=== PATIENT | female | born 1990 | race Caucasian/White ===

== ENCOUNTER 2023-09-11 14:18 | Outpatient (CLI) | payer BC, SELFPAY ==
[2023-09-11 22:43] LABS: Chlamydia DNA Amplified* NOT DETECTED (No Detected); GC DNA Amplified* NOT DETECTED (No Detected)
== END 2023-09-11 14:19 | disposition home or self-care (01) ==
PROVIDERS: Visit Provider Obstetrics & Gynecology
DX: Z11.3 Encounter for screening for infections with a predominantly sexual mode of transmission (principal)
CPT/HCPCS: 86592; 86703; 86803; 87341; 87491; 87591

== ENCOUNTER 2023-11-28 15:59 | Outpatient (CLI) | payer BC, SELFPAY | END 2023-11-28 16:00 | disposition home or self-care (01) | PROVIDERS: Visit Provider Obstetrics & Gynecology | DX: R39.9 Unspecified symptoms and signs involving the genitourinary system (principal) | CPT/HCPCS: 87086 ==

== ENCOUNTER 2024-10-06 11:47 | Outpatient (CLI) | payer BC, SELFPAY ==
[2024-10-06 23:47] LABS: Chlamydia DNA Amplified* NOT DETECTED (No Detected); GC DNA Amplified* NOT DETECTED (No Detected)
[2024-10-15 01:39] LABS: HPV Source Cervix; HPV, High Risk by TMA Not Detected
== END 2024-10-06 11:48 | disposition home or self-care (01) ==
PROVIDERS: Visit Provider Obstetrics & Gynecology
DX: N92.6 Irregular menstruation, unspecified (principal); N87.0 Mild cervical dysplasia; Z11.3 Encounter for screening for infections with a predominantly sexual mode of transmission
CPT/HCPCS: 86592; 86703; 86706; 86803; 87340; 87491; 87591; 87624; 87625; 88141; 88142

== ENCOUNTER 2024-11-01 16:34 | Outpatient (CLI) | payer BC, SELFPAY ==
--- NOTE | 2024-11-01 16:45 | CRLHL7_ITS ---
For Patients: As a result of the Century Cures Act, medical imaging exams and procedure reports are released immediately into your electronic medical record. You may view this report before your referring provider. If you have questions, please contact your health care provider. INDICATION: Irregular and extended vaginal bleeding COMPARISON: none TECHNIQUE: 2D hayes scale and color Doppler images were acquired of the pelvis using a transabdominal and transvaginal approach. FINDINGS: Sonographic images demonstrate a normal size and smooth outer contour of the uterus. Uterus measures 9.1 cm in length by 3.1 cm in AP diameter by 4.1 cm in transverse dimension. The myometrium has a normal uniform echotexture. The endometrium is not thickened. Normal position of an IUD within the endometrial canal. The right ovary measures 3.8 x 2.4 x 3.3 cm in size and the left ovary measures 2.5 x 0.9 x 1.7 cm. The ovaries demonstrate normal arterial and venous blood flow on color Doppler analysis. There are no suspicious fluid collections within the cul-de-sac. Simple right ovarian cyst right ovary measures 3.4 x 2.1 x 3.1 cm with an associated daughter cyst. IMPRESSION: Normal position of an IUD within the endometrial canal. Endometrium not thickened. No endometrial fluid. Dictated by Michael Guevara MD @ 11/02/2024 1:08:37 PM (Electronically Signed)
== END 2024-11-01 16:35 | disposition home or self-care (01) ==
LOC: US 16:35
PROVIDERS: Visit Provider Obstetrics & Gynecology
DX: N92.6 Irregular menstruation, unspecified (principal)
CPT/HCPCS: 76830; 76856